=== PATIENT | female | born 1945 | race Two or more races ===

== ENCOUNTER 2018-04-30 12:22 | Inpatient (IN) | payer OTHER ==
[~2018-04-30] VITALS: Ht 175.3 cm; Wt 84.4 kg
[2018-04-30] MEDS ORDERED: TRAMADOL HCL50 MG PO (12:59)
[2018-04-30] MEDS ORDERED: ALTACE2.5 MG PO (12:59)
[2018-04-30] MEDS ORDERED: ORAPRED ODT10 MG PO (13:00)
[2018-04-30] MEDS ORDERED: SYNTHROID88 MCG PO (13:00)
[2018-04-30] MEDS ORDERED: PRAVASTATIN SOD40 MG PO (13:00)
[2018-04-30] MEDS ORDERED: BENADRYL25 MG PO (13:01)
[2018-05-08] MEDS ORDERED: GABAPENTIN800 MG PO (10:04)
[2018-05-08] MEDS ORDERED: DOCUSATE SODIU100 MG PO (10:04)
[2018-05-08] MEDS ORDERED: AMOX-CLAV 875-1 EACH PO (10:05)
[2018-05-08] MEDS ORDERED: PERCOCET 5-3251 EACH PO (10:06)
[2018-05-08] MEDS ORDERED: CLONAZEPAM1 MG PO (10:06)
== END 2018-05-08 14:24 | disposition home or self-care (01) | DRG 460 ==
LOC: PED 05-07 05:35 → O/R 05-07 05:35 → RECOVERY 05-07 13:30 → PED 05-07 16:49 → RECOVERY 05-07 17:00 → PED 05-08 14:24
PROVIDERS: Orthopaedic Surgery Orthopaedic Surgery of the Spine
PROC: 00NY0ZZ Release Lumbar Spinal Cord, Open Approach (ICD-10-PCS; 2018-05-07)
PROC: 0ST20ZZ Resection of Lumbar Vertebral Disc, Open Approach (ICD-10-PCS; 2018-05-07)
PROC: 07DS3ZZ Extraction of Vertebral Bone Marrow, Percutaneous Approach (ICD-10-PCS; 2018-05-07)
PROC: 0SG00AJ Fusion of Lumbar Vertebral Joint with Interbody Fusion Device, Posterior Approach, Anterior Column, Open Approach (ICD-10-PCS; principal; 2018-05-07 17:00)
DX: M48.061 Spinal stenosis, lumbar region without neurogenic claudication (principal); M51.16 Intervertebral disc disorders with radiculopathy, lumbar region; M43.16 Spondylolisthesis, lumbar region; M21.372 Foot drop, left foot; I10 Essential (primary) hypertension; E03.8 Other specified hypothyroidism